=== PATIENT | male | born 1945 | race Caucasian/White ===

== ENCOUNTER 2021-04-24 13:25 | Outpatient (CLI) | payer OTHER ==
[~2021-04-24] VITALS: Ht 188 cm; Wt 86.2 kg
[2021-04-24] MEDS ORDERED: albuterol 2.5 MG/3 ML nebule NEB ONE (13:50)
== END 2021-04-24 23:59 | disposition home or self-care (01) ==
LOC: RT 13:25
PROVIDERS: ATTEND Chiropractor
DX: R94.2 Abnormal results of pulmonary function studies (principal)
CPT/HCPCS: 94060; 94760